=== PATIENT | female | born 1970 | race Caucasian/White ===

== ENCOUNTER 2024-11-19 23:10 | Emergency (ER) | payer OTHER ==
[2024-11-19] MEDS ORDERED: diphenhydrAMINE 25 MG CAP ONE ×2 (23:39→23:44)
[2024-11-19] MEDS ORDERED: Dexamethasone 10 MG/ML VIAL ONE (23:39)
== END 2024-11-19 23:55 | disposition home or self-care (01) ==
LOC: CSHERS 23:10
DX: T78.40XA Allergy, unspecified, initial encounter (principal); I10 Essential (primary) hypertension; E11.9 Type 2 diabetes mellitus without complications; E78.5 Hyperlipidemia, unspecified; I25.10 Atherosclerotic heart disease of native coronary artery without angina pectoris; F17.290 Nicotine dependence, other tobacco product, uncomplicated; Z79.82 Long term (current) use of aspirin; Z79.899 Other long term (current) drug therapy
CPT/HCPCS: 96372; 99282; J1100